=== PATIENT | female | born 1955 | race Hispanic/Latino ===

== ENCOUNTER 2016-06-12 11:11 | Day surgery (SDC) | payer OTHER ==
[2016-06-12] VITALS (7 sets, daily range): BP systolic 130–150; BP diastolic 68–85; PULSE 60–71; RESP 12–22; O2SAT 95–99
[~2016-06-12] VITALS: Ht 157.5 cm; Wt 99.6 kg
[~2016-06-12 11:11] MED LIST: BUPR100T7 PO; HYDR-4003 PO; HYDR12.55 PO; KEN1C EXT; LISI30TA5 PO; Lactated Ringer's 1,000 ML IV SCH; METF-495 PO; OMEP20CA11 PO; PRAV20TA2 PO
[2016-06-12] MEDS ORDERED: fentaNYL-PF 50 mCg/mL 2 mL Inj ONE (11:12)
[2016-06-12] MEDS ORDERED: Propofol 10,000 mCg/mL 20 mL Inj ONE (11:12)
[2016-06-12] MEDS ORDERED: Lactated Ringer's 1,000 ML IV ONE (12:23)
--- NOTE | 2016-06-12 14:28 | PCM.HPANE ---
Patient Data Surgeon Admitting Provider: Attending Provider:Rowan Ibarra MD Primary Care Physician:Irvin Jackson DO Other Provider:Jacky Ren Anesthesia Reason for Visit Postmenopausal Bleeding Ht/WT & BMI Height (Feet): 5 Height (Inches): 2.00 Weight (Kilograms): 99.600 Body Mass Index 40.00 Allergies Coded Allergies: No Known Allergies (Verified Allergy, Unknown, 08/04/13) Past Anesthesia History Anesthesia History: Denies:: Abnormal Airway, Anesthesia Reactions, Difficult Intubation, Fam Anesthesia Reaction, Fam Malignant Hypertherm, Malignant Hyperthermia Diabetes History Hx Diabetes?: Yes Type of Diabetes: Type II Glycemic Control: Oral Medication Current Bedside Blood Glucose: 129 MRSA MRSA: No Medications Blood Thinner: Aspirin Hypertension Medication: Yes Home Meds Incl Beta Dyana: No Reported Medications Bupropion ER (Wellbutrin SR)100 Mg Tablet.er100 Mg PO DAILY Ref 0 06/08/16 Triamcinolone Acet (Triamcinolone Acetonide Cream)1 Applic/0.25 Gm Cr1 Applic EXT BID PRN skin irritation #60 GM Ref 0 06/08/16 Pravastatin 20 Mg Vtzaos07 Mg PO DAILY Ref 0 06/08/16 Omeprazole 20 Mg Capsule.dr20 Mg PO DAILY Ref 0 06/08/16 Metformin ER 500 Mg Ppbaei237 Mg PO DAILY Ref 0 06/08/16 Lisinopril 30 Mg Xloyhl95 Mg PO DAILY 30 Days Ref 0 06/08/16 Hydrocodone-Acetaminophen 5-325 mg 1 Each Tablet1 Tablet PO Q6H PRN For Pain Ref 0 06/08/16 Hydrochlorothiazide 12.5 Mg Nupwfu58.5 Mg PO DAILY 30 Days Ref 0 06/08/16 Discontinued Reported Medications Omeprazole Magnesium (Omeprazole)20 Mg Capsule.dr20 Mg PO BID 30 Days Ref 0 07/21/13 Metformin 500 Mg Upwgpq789 Mg PO BIDWM 30 Days Ref 0 07/21/13 Lisinopril 30 Mg Miwgbj52 Mg PO DAILY 30 Days Ref 0 07/21/13 Hydrocodone-Acetaminophen 5-325 mg 1 Each Tablet1 Each PO BID PRN For Pain Ref 0 07/21/13 Gabapentin 100 Mg Kcebuse393 Mg PO TID 30 Days Ref 0 07/21/13 Last Time Dose Received No meds taken today History History of ENT Problems?: Yes HEENT History: Denies:: Abnormal Airway Cataracts Difficult Intubation Glaucoma Hearing Problem Denture Type: None Partial- Upper Teeth Condition: Within Normal Limits Hx of Heart Problems?: Yes Cardiovascular History: Positive for:: Hypertension Denies:: AICD Atrial Fibrillation Chest Pain Congestive Heart Failure Coronary Artery Disease Edema Heart Murmur Irregular Heartbeat Pacemaker Peripheral Vascular Valvular Heart Disease Other History/Comments No CP Hx of Respiratory Problem?: No Respiratory History: Positive for:: Dyspnea (occasional SOB with walking.) Denies:: Asthma COPD Emphysema Oxygen Administration Pneumonia Tuberculosis Use of C-PAP Machine (sleep study recommended but not followed up on) Hx Neurologic Problems?: No Neurological History: Denies:: CVA Headaches Multiple Sclerosis Parkinson's Disease Seizures Hx of GI Problems?: Yes Hx of Problems?: No Genitourinary History: Denies:: Kidney Stones Urinary Tract Infection Female Hx: Denies:: Currently (post menopausal) Problems with Breasts? Skin History: Denies:: History Skin Disorders? Pressure Ulcers Hx Musculoskeletal Problems?: Yes Musculoskeletal History: Positive for:: Back Injury (chronic back and neck pain- lumbar inj and surgery) Fibromyalgia Osteoarthritis Denies:: Joint Replacement Musculoskeletal Trauma Hx of Psycho/Social Problems?: Yes Psycho Social History: Positive for:: Anxiety Hx Depression Hx Surgeries?: Yes (CTR,NILDA,LAMI,BTL) Hx Any Other Health Problems?: Yes Other History: Positive for:: Hospitalization Denies:: Cancer Endocrine Disease Thyroid Disease History Blood Transfusions: Denies:: Blood Transfuse Reaction Blood Transfusions Hx Diabetes: YesBedside Blood Glucose: 129 Hx Alcohol Use: YesAlcoholic Drinks Per Day: once monthlyHx Substance Use: No Smoking Status: Light Tobacco Smoker Have You Smoked inLast 12 mo: No (2-3 cigarettes daily) Stop/Bang S-Snoring: Do You Snore Loudly: Yes T-Tired: feel tired, fatigued: Yes O-Obsered: Observed not breath: No P-Blood Pressure: treated: Yes B- Body Mass Index > 35 kg/m2: Yes A- Age over 50: Yes N- Neck Large Circumference: No G- Gender Male: No LORRI Total Score: 5 Risk Assessment Category Category 1A: Patient has history of documented sleep apnea, and HAS NOT received any narcotic, sedative or anesthesia administration during this stay. Category 1B: Patient has history of documented sleep apnea, and HAS received any narcotic , sedative or anesthesia administration during this stay Category 2: Patient has SUSPECTED Obstructive Sleep Apnea, and HAS received any narcotic , sedative or anesthesia administration during this stay. Category 3: Patient has SUSPECTED Obstructive Sleep Apnea and HAS NOT received narcotic, sedative or anesthesia administration during this stay. Category 4: Outpatient in Procedural Areas with known sleep apnea or who screen positive for High Risk via the STOP/BANG questionnaire. Exam Exam Vital Signs Vital Signs Date Time Temp Pulse Resp B/P Pulse Ox O2 Delivery O2 Flow Rate FiO2 06/12/16 12:19 36.6 67 14 130/68 95 Room Air General Appearance: Alert, Oriented X3 HEENT/AIRWAY: MP 2, Neck Movement (FROM), Other (partial upper implant) Lungs: Clear to Auscultation, Clear to Percussion Heart: Exam Unremarkable, Regular Rate/Rhythm Meds/Labs/Diagnostics Admission Meds Current Medications Lactated Ringer's (Lr) 1,000 ml @ ud STK-MED ONCE IV Last administered on 06/12t 12:23; Start 06/12/16 at 12:23; Stop 06/12/16 at 12:24; Status DC Bedside Blood Glucose: 129 Plan Impression Patient chart reviewed, patient interviewed and anesthestic plan with risks, benefits, and alternatives discussed, and informed consent obtained. ASA Physical Status: ASA2 Mod Systemic Disease Anesthetic Plan: GA Bene/Risks/Altern/Consents: Yes HP Complete Prior to Induction: Yes Wei Mendez MD Jun 12, 2016 13:42
[2016-06-12] MEDS ORDERED: Lactated Ringer's 1,000 ML IV SCH (14:43)
[2016-06-12] MEDS ORDERED: Lactated Ringer's 500 ML IV PRN (14:43)
[2016-06-12] MEDS ORDERED: HYDROmorphone 1 mg/mL Inj IVPUSH PRN (14:45)
[2016-06-12] MEDS ORDERED: fentaNYL-PF 50 mCg/mL 2 mL Inj IVPUSH PRN (14:45)
[2016-06-12] MEDS ORDERED: Labetalol 5 mg/mL 4 mL Inj IV PRN (14:45)
[2016-06-12] MEDS ORDERED: EPHEDrine Sulfate 50 mg/mL Inj IVPUSH PRN (14:45)
[2016-06-12] MEDS ORDERED: Ondansetron 2 mg/mL 2 mL Inj IVPUSH PRN ×2 (14:45→15:45)
[2016-06-12] MEDS ORDERED: Atropine 0.4 mg/mL Inj IVPUSH PRN (14:45)
[2016-06-12] MEDS ORDERED: Phenylephrine 10,000 mCg/mL Inj IVPUSH PRN (14:45)
[2016-06-12] MEDS ORDERED: MetoCLOpramide 5 mg/mL 2 mL Inj IVPUSH PRN (14:45)
[2016-06-12] MEDS ORDERED: oxyCODONE-Acetamin 5-325 mg Tablet PO PRN (15:45)
--- NOTE | 2016-06-12 15:46 | PCM.DIGYN ---
Surgical Discharge Instruction Dates of Hospitalization Date of Hospital Admission Providers Admitting Physician: Primary Care Physician: Irvin Jackson DO Attending Physician: Rowan Ibarra MD Diagnosis at Time of Discharge Diagnosis at time of discharge s/p hysterscopy polypectomy, D&C Problems: Diet Discharge Diet: No restrictions Activity Discharge Activity-General: Try not to overdue, Be up and about, No driving while taking narcotic Dressing and Incisional Care Hygiene: May shower, NO bathtub, hot tub or whirlpool Additional Instructions Discharge Instructions please call office if heavy vaginal bleeding, severe abdominal pain, foul smelling discharge, fever more than 100.4 Follow Up Plan Follow-up Provider (F9): Rowan Ibarra MD Follow-up appointment: Weeks (2) Call your provider for: Fever, Chills, Shortness of breath, Heavy vaginal bleeding, Increasing pain Rowan Ibarra MD Jun 12, 2016 15:46
--- NOTE | 2016-06-12 22:55 | OP ---
[address] [address] OPERATIVE REPORT PATIENT: VADIM JACOBO : 1955 MR#: [id number] ADMIT: 06/12/2016 JOB ID: [id number] DATE OF SURGERY: 06/12/2016 INDICATION: A 60-year-old female presents for postmenopausal vaginal bleeding. Ultrasound shows thickened endometrium. Office biopsy showed uterine polyps. After discussion, decided to do hysteroscopy, polypectomy, D and C. Informed consent signed after talking with patient about the benefits, risks and alternatives of procedure. The risks including infection, bleeding, injury to the organs of the uterus or around the uterus including, but not limited to, the bladder, ureters, major vessels, nerves, and bowels. Informed consent signed. PREOPERATIVE DIAGNOSIS(ES): 1. Postmenopausal bleeding. 2. Uterine polyps. POSTOPERATIVE DIAGNOSIS(ES): 1. Postmenopausal bleeding. 2. Uterine polyps. SURGEON: Rowan Ibarra MD. PROCEDURE: Patient was transferred to operating room after anesthesia was noted to be adequate. She was placed in dorsal lithotomy position. She was prepared and draped in normal sterile fashion. A speculum inserted into vagina to expose the cervix. The cervix was grasped by single-tooth tenaculum. The cervix was dilated gently to 8 mm. At this time, the MyoSure scope inserted to examine the uterine cavity. Multiple polyps noticed. Otherwise, no other abnormal finding. The polyps were about 1 cm in size but there are multiples of them. At this time, decision was to use the MyoSure to remove the polyps. Polyp was removed completely with MyoSure. After confirmed removal of the polyps, gentle D and C was performed. All specimens sent to pathology together. At this time, all instruments removed from the field. Hemostasis confirmed. The fluid deficit was about 500 cc. There was a small amount of minimal urine drainage before the procedure. The patient was transferred to recovery room in stable condition.
--- NOTE | 2016-06-12 22:56 | DIS ---
[address] [address] DISCHARGE SUMMARY PATIENT: VADIM JACOBO : 1955 MR#: [id number] ADMIT: 06/12/2016 JOB ID: [id number] DIS: DISCHARGE SUMMARY: A 60-year-old female coming in for hysteroscopy, D and C, polypectomy for postmenopausal bleeding, endometrium polyp. The procedure was not complicated. The patient was planned to send home after procedure. Patient will be discharged after she could ambulate, tolerate diet, and her pain is well controlled. I prescribed her Motrin 600 mg one tablet q.6 h. p.r.n. for pain 30 pills, no refills. Patient is instructed that if there is heavy vaginal bleeding, severe abdominal pain, foul-smelling discharge, fever more than 100.4, she would need to call office or go to the emergency department for evaluation. She is instructed to make an appointment two weeks after the procedure for followup.
--- NOTE | 2016-06-14 13:21 | PATH ---
SURGICAL PATHOLOGY Attending Physician:Rowan Ibarra MD CASE STATUS: Signed Out PATIENT NAME: VADIM JACOBO PID: [id number] : 1955 DATE COLLECTED:06/12/2016 00:00 SPECIMEN: Endometrium, Biopsy CLINICAL HISTORY: POSTMENOPAUSAL BLEEDING 1). ENDOMETRIAL POLYP WITH ENDOMETRIAL CURETTINGS TIF 15:35 FINAL DIAGNOSIS: 1.ENDOMETRIAL POLYP WITH ENDOMETRIAL CURETTINGS: ENDOMETRIAL POLYP, MULTIPLE FRAGMENTS, AND FRAGMENTS OF INACTIVE ENDOMETRIUM. Negative for hyperplasia, atypia, and neoplasia. ICD10 code N84.0 GROSS DESCRIPTION: The specimen is received in one formalin filled container labeled with the patient's name, sublabeled "endometrial polyp with endometrial curetting" and consists of multiple portions of tissue and blood which aggregate to 4.0 x 2.5 x 0.6 CM. The specimen is entirely submitted in 3 cassettes. 06/13/2016 DAC MICRO DESCRIPTION: See diagnosis. ICD-9 CODES: CPT CODES: 1: 91859 Electronically Signed Out Maddy Mendez MD [facility] [address], [place] [address] Technical component performed at [facility], [address] [place] [address] Ave[address], [place], [address]
== END 2016-06-12 23:59 | disposition home or self-care (01) ==
LOC: SAS 11:11
PROVIDERS: ATTEND Obstetrics & Gynecology
DX: N95.0 Postmenopausal bleeding (principal); N84.0 Polyp of corpus uteri; I10 Essential (primary) hypertension; E11.9 Type 2 diabetes mellitus without complications; M48.02 Spinal stenosis, cervical region; F41.9 Anxiety disorder, unspecified; K21.9 Gastro-esophageal reflux disease without esophagitis; K44.9 Diaphragmatic hernia without obstruction or gangrene; E66.01 Morbid (severe) obesity due to excess calories; M79.7 Fibromyalgia; R06.00 Dyspnea, unspecified; K57.30 Diverticulosis of large intestine without perforation or abscess without bleeding; F32.9 Major depressive disorder, single episode, unspecified; M19.90 Unspecified osteoarthritis, unspecified site; F17.210 Nicotine dependence, cigarettes, uncomplicated; Z79.84 Long term (current) use of oral hypoglycemic drugs; Z86.010 Personal history of colon polyps; Z68.41 Body mass index [BMI] 40.0-44.9, adult; Z79.82 Long term (current) use of aspirin
CPT/HCPCS: 58558; 88305; J1885; J3010; J7120

== ENCOUNTER 2016-07-13 09:40 | Day surgery (SDC) | payer OTHER ==
[~2016-07-13] VITALS: Ht 157.5 cm; Wt 98.9 kg
[~2016-07-13 09:40] MED LIST changes: -Lactated Ringer's 1,000 ML IV SCH
[2016-07-13 10:27] VITALS: BP 137/84; PULSE 70; RESP 16; O2SAT 96
--- NOTE | 2016-07-13 15:01 | PCM.PROC ---
Procedure Note Date of Service: July 13, 2016 Pre Procedure Diagnosis: Procedure rescheduled secondary to elevated blood sugars Sotero Amor MD July 13, 2016 15:01
== END 2016-07-13 23:59 | disposition home or self-care (01) ==
LOC: END 09:40
PROVIDERS: ATTEND Anesthesiology Pain Medicine
DX: M46.1 Sacroiliitis, not elsewhere classified (principal); Z53.09 Procedure and treatment not carried out because of other contraindication; R73.9 Hyperglycemia, unspecified

== ENCOUNTER 2016-08-10 13:10 | Day surgery (SDC) | payer OTHER ==
[~2016-08-10] VITALS: Ht 157.5 cm; Wt 98.4 kg
[~2016-08-10 13:10] MED LIST changes: -KEN1C EXT
[2016-08-10] MEDS ORDERED: Bupivacaine-MPF 0.25% 30 mL Inj ONE (13:11)
[2016-08-10] MEDS ORDERED: MethylprednisoLONE Depot 80 mg/mL Inj ONE (13:11)
[2016-08-10] MEDS ORDERED: Iohexol 240 mg/mL 10 mL Inj ONE (13:11)
[2016-08-10 13:29] VITALS: BP 145/84; PULSE 71; RESP 14; O2SAT 97
--- NOTE | 2016-08-10 15:54 | PCM.PROC ---
Procedure Note Date of Service: Aug 10, 2016 Pre Procedure Diagnosis: PROCEDURE: RIGHT Sacroiliac joint injection (fluoroscopically guided) PRE-PROCEDURE DIAGNOSIS: Sacroiliitis POST-PROCEDURE DIAGNOSIS: same INDICATION: 89-year-old female with posterior hip pain, suggestive of sacroiliitis ASA / ANTICOAGULATION: No asa x 7 days PERFORMED BY: Sotero Amor MD DESCRIPTION OF PROCEDURE: Patient was met in the holding area. Consent was signed, site was confirmed and all questions were answered. Patient was taken to the procedure suite and placed prone on the procedure table. Area was prepped and draped in sterile fashion Local anesthesia with 1% lidocaine was injected into the epidermidis and dermis. A 22-gauge Quincke spinal needle was advanced towards the sacroiliac joint after visualization was optimized fluoroscopically in the AP view. Proper positioning in the joint was confirmed by injecting contrast. We then took a lateral view to reconfirm proper positioning in the sacroiliac joint. 80mg depomedrol with 2 cc of 0.25% Bupivicaine injected without difficulty. ANESTHESIA: Local. EBL: None. No Blood Products Used COMPLICATIONS: None SPECIMENS: None POST-PROCEDURE DISPOSITION: Patient tolerated the procedure well was returned to the holding area in stable condition. They were discharged home when all discharge criteria were met. Fluro time: See Radiology Report Evaluation/Physical Exam before discharge revealed: DISCHARGE MEDICATIONS: none FOLLOW UP: Keep scheduled follow-up Sotero Amor MD * Pain Management * Anesthesiology Sotero Amor MD Aug 10, 2016 15:54
--- NOTE | 2016-08-13 12:38 | DRSVH ---
PROCEDURE: X-RAY NO CHARGE FLUORO<1 HR INDICATIONS: RIGHT SI JOINT INJECTION COMPARISON: None. FINDINGS/IMPRESSION: Single spot fluoroscopic image demonstrates injection of the right sacroiliac j oint. Dictated by: Celia Ewing M.D. on 08/13/2016 at 12:35 Approved by: Celia Ewing M.D. on 08/13/2016 at 12:36
== END 2016-08-10 23:59 | disposition home or self-care (01) ==
LOC: END 13:10
PROVIDERS: ATTEND Anesthesiology Pain Medicine
DX: M46.1 Sacroiliitis, not elsewhere classified (principal); E11.9 Type 2 diabetes mellitus without complications; K21.9 Gastro-esophageal reflux disease without esophagitis; I10 Essential (primary) hypertension
CPT/HCPCS: G0260; J1040